=== PATIENT | male | born 1985 | race American Indian/Alaskan Native ===

== ENCOUNTER 2018-06-15 15:19 | Emergency (ER) | payer MEDICAID, OTHER ==
[2018-06-15 15:25] VITALS: BMI 40.3
[2018-06-15 15:28] VITALS: TEMP 98.7
--- NOTE | 2018-06-15 15:48 | ED PDOC ---
Arrival/HPI - General Chief Complaint: Abdominal Pain - History of Present Illness Narrative History of Present Illness (Text): 06/15/18 15:50 32 y o male PMhx HTN, asthma presents to the ED c/o lower abd pain x 2 days. States he was drinking [place] and [place] liquor while out with friends 2 nights prior, states that he started feeling abdominal discomfort 2-3 hrs after EtOH ingestion. Admits to being social drinker on weekends and special occasions. States he ate a small amt of food prior to drinking that evening. Denies hx of this occurring before. Came to ED today because the pain was not going away and he was concerned. Denies associated nausea or vomiting. Localizes abdominal pain to below umbilicus without radiation, describes as sharp/achy in quality, rates pain as 7/10 currently. Denies taking any pain medications at home for symptoms. Denies hx sick contacts, recent URI, or recent antibiotic use. States no one at home has similar symptoms. Denies fever, chills, headache, dizziness, chest pain, sob, n/v/d/c, urinary complaints, low back pain, or other symptoms currently. States his blood pressure is usually uncontrolled, and admits to missing doses of his am HTN pill sometimes. States he took his bp pill this am. PMhx: asthma, HTN PSurgHx: denies Allergies: NKDA Home meds: HTN med daily (pt does not recall name or dosage) Fam hx: denies Soc hx: drinks EtOH socially; smokes 2-3 cigars/daily; denies illicit drug use PMD: Dr. Gotti Time/Duration: Other (2 days) Symptom Onset: Gradual Symptom Course: Unchanged Quality: Aching, Stabbing Severity Level: 7 Activities at Onset: Other (Drinking alcohol) Context: Home Past Medical History - Provider Review Nursing Documentation Reviewed: Yes - Travel History Have you recently traveled outside [place] w/in the past 3 mons?: No - Infectious Disease Hx of Infectious Diseases: None - Cardiac Hx Cardiac Disorders: No Hx Hypotension: Yes - Pulmonary Hx Asthma: Yes - Neurological Hx Neurological Disorder: No - HEENT Hx HEENT Disorder: No - Renal Hx Renal Disorder: No - Endocrine/Metabolic Hx Endocrine Disorders: No - Hematological/Oncological Hx Blood Disorders: No - Integumentary Hx Dermatological Disorder: No - Musculoskeletal/Rheumatological Hx Back Pain: Yes - Gastrointestinal Hx Gastrointestinal Disorders: No - Genitourinary/Gynecological Hx Genitourinary Disorders: No - Psychiatric Hx Psychophysiologic Disorder: No Hx Depression: No Hx Substance Use: Yes - Surgical History Other/Comment: right wrist, left hand - Anesthesia Hx Anesthesia: No Hx Anesthesia Reactions: No Hx Malignant Hyperthermia: No Family/Social History Family/Social History: No Known Family HX Smoking Status: Light Smoker < 10 Cigarettes Daily Hx Alcohol Use: Yes (shots) Hx Substance Use: Yes Substance used: PCP daily Allergies/Home Meds Allergies/Adverse Reactions: Allergies seasonal Allergy (Mild, Uncoded 05/09/15 10:57) Review of Systems - Physician Review All systems were reviewed & negative as marked: Yes - Review of Systems Constitutional: absent: Fatigue, Weight Change, Fevers, Night Sweats Eyes: absent: Vision Changes Respiratory: absent: SOB, Cough, Sputum, Wheezing Cardiovascular: absent: Chest Pain, Palpitations, Edema, OLSEN Gastrointestinal: Abdominal Pain. absent: Stool Changes, Constipation, Diarrhea, Nausea, Vomiting, Appetite Changes, Hematochezia, Food Intolerance Genitourinary Male: absent: Dysuria, Frequency, Hematuria Musculoskeletal: absent: Arthralgias, Back Pain, Myalgias Skin: absent: Rash, Pruritis Neurological: absent: Headache, Dizziness, Focal Weakness, Gait Changes Endocrine: absent: Diaphoresis Hemo/Lymphatic: absent: Adenopathy Physical Exam Vital Signs Temp Pulse Resp BP Pulse Ox 06/15/18 15:19 98.7 F 91 H 18 151/89 H 97 Temperature: Afebrile Blood Pressure: Hypertensive Pulse: Regular Respiratory Rate: Normal Appearance: Positive for: Well-Appearing, Non-Toxic, Comfortable Pain Distress: Moderate Mental Status: Positive for: Alert and Oriented X 3 - Systems Exam Head: Present: Atraumatic, Normocephalic Pupils: Present: PERRL Extroacular Muscles: Present: EOMI Conjunctiva: Present: Normal Mouth: Present: Moist Mucous Membranes Neck: Present: Normal Range of Motion. No: JVD, Lymphadenopathy Respiratory/Chest: Present: Clear to Auscultation, Good Air Exchange. No: Respiratory Distress, Accessory Muscle Use, Wheezes, Rales, Rhonchi Cardiovascular: Present: Regular Rate and Rhythm, Normal S1, S2. No: Murmurs, Rub, Gallop Abdomen: Present: Tenderness (To palpation in lower abdomen inferior to umbilicus), Distention, Normal Bowel Sounds. No: Peritoneal Signs, Rebound, Guarding, Hernias, Mass/Organomegaly Upper Extremity: Present: Normal Inspection, Normal ROM, NORMAL PULSES, Neurovascularly Intact, Capillary Refill < 2s. No: Cyanosis, Edema, Temperature Abnormalties Lower Extremity: Present: Normal Inspection, NORMAL PULSES, Normal ROM, Neurovascularly Intact, Capillary Refill < 2 s. No: Edema, Temperature Abnormalties Neurological: Present: GCS=15, CN II-XII Intact, Speech Normal, Motor Func Grossly Intact, Normal Sensory Function, Normal Cerebellar Funct Skin: Present: Warm, Dry, Normal Color. No: Rashes Psychiatric: Present: Alert, Oriented x 3, Normal Insight, Normal Concentration Medical Decision Making ED Course and Treatment: 06/15/18 16:01 32 y o male PMhx asthma, HTN presenting with lower abd pain x 2 days. Plan: -Labs -Toradol -Abd/pelvis CT Will continue to monitor 06/15/18 18:12 Pt reassessed, states he is feeling better. Results of CT scan demonstrate no acute findings. AST elevated at 82, instructed patient to have LFTs repeated in clinic, likely 2/2 to EtOH intake. Instructed pt to follow-up with his PMD in 2-3 days after ER discharge. Can have LFTs repeated as outpatient. Pt to be discharged to home at this time. All questions and concerns addressed with pt and he is agreeable to plan. - RAD Interpretation Radiology Orders: 06/15/18 15:43 ABD & PELVIS IV CONTRAST ONLY [CT] Stat - Medication Orders Current Medication Orders: Ketorolac Tromethamine (Toradol) 15 mg IVP STAT STA Stop: 06/15/18 15:44 Disposition/Present on Arrival - Present on Arrival Any Indicators Present on Arrival: No History of DVT/PE: No History of Uncontrolled Diabetes: No Urinary Catheter: No History of Decub. Ulcer: No History Surgical Site Infection Following: None - Disposition Have Diagnosis and Disposition been Completed?: Yes Diagnosis: Abdominal pain, Transaminitis Disposition: HOME/ ROUTINE Disposition Time: 18:16 Patient Problems: Current Active Problems Problem Status Onset Abdominal pain Acute Transaminitis Acute Condition: IMPROVED Discharge Instructions (ExitCare): Acute Abdomen (Belly Pain), Adult (DC) Print Language: NIUEAN Additional Instructions: Please follow-up with your primary care physician within 2-3 days of hospital discharge. Can resume normal diet as tolerated. Should your symptoms recur or worsen, please call your primary care physician or report to your nearest emergency department. Please have your liver function tests repeated within 2 weeks during follow-up with your primary care physician. Referrals: Lolita Gotti MD [Primary Care Provider] - Follow up with primary Forms: [facility] (Chinese)
[2018-06-15 16:03] LABS: URINE BILIRUBIN NEGATIVE (NEGATIVE); URINE BLOOD NEGATIVE (NEGATIVE); URINE GLUCOSE (UA) NEGATIVE (NEGATIVE); URINE LEUKOCYTE ESTERASE NEGATIVE Leu/uL (NEGATIVE); URINE PROTEIN TRACE mg/dL (<30 mg/dL)
[2018-06-15 16:04] LABS: URINE APPEARANCE CLEAR (CLEAR); URINE COLOR LIGHT YELLOW (YELLOW)
[2018-06-15 16:07] LABS: URINE RBC NEGATIVE /hpf (0-2); URINE WBC NEGATIVE /hpf (0-6)
[2018-06-15 16:10] LABS: BASO # 0.02 K/mm3 (0.0-2.0); BASO % 0.4 % (0.0-3.0); EOS # 0.2 (0.0-0.7); EOS % 4.1 % (1.5-5.0); GRAN # 3.64 (1.4-6.5); GRAN % 67.2 % (50.0-68.0); HEMOGLOBIN 15.7 g/dL (14.0-18.0); LYMPH # 1.3 (1.2-3.4); LYMPH % 23.3 % (22.0-35.0); MEAN CELL VOLUME 89.8 fl (80.0-105.0); MEAN CORPUSCULAR HEMOGLOBIN 30.8 pg (25.0-35.0); MEAN CORPUSCULAR HGB CONC 34.4 g/dl (31.0-37.0); MEAN PLATELET VOLUME 10.2 fl (7.0-11.0); MONO # 0.3 (0.1-0.6); RBC 5.09 10^6/uL (3.5-6.1); RED CELL DISTRIBUTION WIDTH 12.4 % (11.5-14.5); WHITE BLOOD COUNT 5.4 10^3/uL (4.5-11.0)
[2018-06-15 16:20] LABS: ALB/GLOB RATIO 1.3 (1.1-1.8); ALBUMIN 4.5 g/dL (3.0-4.8); BLOOD UREA NITROGEN 10 mg/dL (7-21); CALCIUM 9.3 mg/dL (8.4-10.5); GFR NON-AFRICAN AMERICAN > 60
[2018-06-15 16:28] LABS: ALT/SGPT 42 U/L (7-56); AST/SGOT 82 U/L (17-59)
--- NOTE | 2018-06-15 17:33 | CT ---
Date of service: 06/15/2018 PROCEDURE: CT Abdomen and Pelvis with contrast HISTORY: lower abdominal pain COMPARISON: None. TECHNIQUE: Contrast dose: 144 cc of Omni 350 Radiation dose: Total exam DLP = 1243.91 mGy-cm. This CT exam was performed using one or more of the following dose reduction techniques: Automated exposure control, adjustment of the mA and/or kV according to patient size, and/or use of iterative reconstruction technique. FINDINGS: LOWER THORAX: Unremarkable. LIVER: Unremarkable. No gross lesion or ductal dilatation. GALLBLADDER AND BILE DUCTS: Unremarkable. PANCREAS: Unremarkable. No gross lesion or ductal dilatation. SPLEEN: Unremarkable. ADRENALS: Unremarkable. No mass. KIDNEYS AND URETERS: Unremarkable. No hydronephrosis. No solid mass. VASCULATURE: Unremarkable. No aortic aneurysm. No aortic atherosclerotic calcification or mural plaque present. BOWEL: Unremarkable. No obstruction. No gross mural thickening. APPENDIX: Normal appendix. PERITONEUM: Unremarkable. No free fluid. No free air. LYMPH NODES: Unremarkable. No enlarged lymph nodes. BLADDER: Unremarkable. REPRODUCTIVE: Unremarkable. BONES: No acute fracture. OTHER FINDINGS: None. IMPRESSION: No acute findings
[2018-06-15 17:45] VITALS: BP 141/81; PULSE 83; RESP 19; O2SAT 98
== END 2018-06-15 18:21 | disposition home or self-care (01) ==
LOC: ED 15:19
DX: R10.9 Unspecified abdominal pain (principal); R74.0 Nonspecific elevation of levels of transaminase and lactic acid dehydrogenase [LDH]; I10 Essential (primary) hypertension; F17.210 Nicotine dependence, cigarettes, uncomplicated
CPT/HCPCS: 74177; 80053; 81001; 83735; 85025; 96374; 99284; J1885; Q9967

== ENCOUNTER 2018-10-02 10:28 | Emergency (ER) | payer MEDICAID, OTHER ==
[2018-10-02 10:29] VITALS: BMI 40.3
[2018-10-02 11:07] VITALS: RESP 18; TEMP 98.8
--- NOTE | 2018-10-02 11:38 | ED PDOC ---
Arrival/HPI - General Chief Complaint: Palpitations Historian: Patient - History of Present Illness Narrative History of Present Illness (Text): 10/02/18 11:36 33 y/o male, pmh including htn, nkda, c/o nasal congestion/throat pain/cough x 2 days and out of his BP medication that he has been taking for years. Pt. stated that he has nasal congestion, associated with throat pain and cough/fatigue x 2 days. Pt. stated that she has been out of his BP medication these two days, been taking diovan hct for years 80/12.5 po qd, unable to see pmd due to the insurance problem so he needs his medication refill, no night sweat, no rash, no dizziness, no change in vision, no other medical or psychological complaints. Past Medical History - Provider Review Nursing Documentation Reviewed: Yes - Infectious Disease Hx of Infectious Diseases: None - Cardiac Hx Cardiac Disorders: Yes Hx Hypertension: Yes Hx Hypotension: No - Pulmonary Hx Asthma: Yes - Neurological Hx Neurological Disorder: No - HEENT Hx HEENT Disorder: No - Renal Hx Renal Disorder: No - Endocrine/Metabolic Hx Endocrine Disorders: No - Hematological/Oncological Hx Blood Disorders: No - Integumentary Hx Dermatological Disorder: No - Musculoskeletal/Rheumatological Hx Back Pain: Yes - Gastrointestinal Hx Gastrointestinal Disorders: No - Genitourinary/Gynecological Hx Genitourinary Disorders: No - Psychiatric Hx Psychophysiologic Disorder: No Hx Depression: No Hx Substance Use: Yes - Surgical History Other/Comment: right wrist, left hand - Anesthesia Hx Anesthesia: No Hx Anesthesia Reactions: No Hx Malignant Hyperthermia: No Family/Social History - Physician Review Nursing Documentation Reviewed: Yes Family/Social History: Unknown Family HX Smoking Status: Light Smoker < 10 Cigarettes Daily Hx Alcohol Use: Yes (shots) Hx Substance Use: Yes Substance used: PCP daily Allergies/Home Meds Allergies/Adverse Reactions: Allergies seasonal Allergy (Mild, Uncoded 10/02/18 11:07) ITCHING Home Medications: Home Meds Medication Instructions Recorded Confirmed Valsartan/Hydrochlorothiazide 1 tab PO DAILY 10/02/18 10/02/18 [Valsartan and Hydrochlorothiazide 12.5 mg-80 ] Review of Systems - Review of Systems Constitutional: absent: Fatigue, Fevers Eyes: absent: Vision Changes ENT: Sore Throat, Rhinorrhea, Sinus Congestion. absent: Hearing Changes Respiratory: Cough, Sputum. absent: SOB, Wheezing Cardiovascular: absent: Chest Pain Gastrointestinal: absent: Abdominal Pain, Diarrhea, Nausea, Vomiting Musculoskeletal: absent: Arthralgias, Back Pain Skin: absent: Rash, Pruritis Neurological: absent: Headache, Dizziness Psychiatric: absent: Anxiety, Depression, Suicidal Ideation Physical Exam Vital Signs Reviewed: Yes Vital Signs Temp Pulse Resp BP Pulse Ox 10/02/18 11:02 98.8 F 94 H 18 153/90 H 96 Temperature: Afebrile Blood Pressure: Hypertensive Pulse: Regular Respiratory Rate: Normal Appearance: Positive for: Well-Appearing, Non-Toxic, Comfortable Pain Distress: Mild Mental Status: Positive for: Alert and Oriented X 3 - Systems Exam Head: Present: Atraumatic, Normocephalic, Other (+ttp on the rt. frontal sinus region with no periorbital or facial swelling. ) Pupils: Present: PERRL Extroacular Muscles: Present: EOMI Conjunctiva: Present: Normal Ears: Present: NORMAL TM, Normal Canal. No: Erythema Mouth: Present: Moist Mucous Membranes Pharnyx: No: ERYTHEMA, EXUDATE, TONSILS ENLARGED, Uvular Deviation, Muffled/Hoarse Voice, Strider, Soft Palate/Uvular Edema Nose (External): Present: Atraumatic. No: Abrasion, Contusion, Laceration Nose (Internal): Present: Normal Inspection, No Active Bleeding, Rhinorrhea. No: Septal Deviation, Septal Hematoma, Epistaxis Neck: Present: Normal Range of Motion Respiratory/Chest: Present: Clear to Auscultation, Good Air Exchange. No: Respiratory Distress, Accessory Muscle Use, Wheezes, Decreased Breath Sounds, Rales, Retracting, Rhonchi, Tachypneic, Tender to Palpation Cardiovascular: Present: Regular Rate and Rhythm, Normal S1, S2. No: Murmurs Abdomen: No: Tenderness, Distention, Peritoneal Signs Back: Present: Normal Inspection. No: CVA Tenderness, Midline Tenderness, Paraspinal Tenderness, Pain with Leg Raise, Decubitus Ulcer Upper Extremity: Present: Normal Inspection. No: Cyanosis, Edema Lower Extremity: Present: Normal Inspection. No: Edema Neurological: Present: GCS=15, CN II-XII Intact, Speech Normal, Motor Func Grossly Intact, Normal Cerebellar Funct, Gait Normal, Memory Normal Skin: Present: Warm, Dry, Normal Color. No: Rashes Psychiatric: Present: Alert, Oriented x 3, Normal Insight, Normal Concentration Medical Decision Making ED Course and Treatment: 10/02/18 11:39 -Will check his potassium level. 10/02/18 12:37 -Labs are nonsignificant, normal bun/creatine and normal potassium level. -Pt. stated that he has been taking diovan hct for over years, no adverse reaction or side effect, -Discharge home with augmentin/tamiflu, bromfed dm, medication refill for diovan hct, motrin, bed rest, stay hydrated, follow up with your own pmd and ENT within 2 days, return to the ER for any new or worsening signs or symptoms. - RAD Interpretation Event Marketing Intern: Radiologist - PA / INSURANCE ADMINISTRATOR / Resident Statement /DO has reviewed & agrees with the documentation as recorded. Disposition/Present on Arrival - Present on Arrival Any Indicators Present on Arrival: No History of DVT/PE: No History of Uncontrolled Diabetes: No Urinary Catheter: No History of Decub. Ulcer: No History Surgical Site Infection Following: None - Disposition Have Diagnosis and Disposition been Completed?: Yes Diagnosis: Flu-like symptoms, Sinusitis, HTN (hypertension), Medication refill Disposition: HOME/ ROUTINE Disposition Time: 11:42 Patient Plan: Discharge Patient Problems: Current Active Problems Problem Status Onset Flu-like symptoms Acute HTN (hypertension) Acute Medication refill Acute Sinusitis Acute Condition: GOOD Discharge Instructions (ExitCare): Sinusitis in Adults Additional Instructions: -Discharge home with augmentin/tamiflu, bromfed dm, medication refill for diovan hct, motrin, bed rest, stay hydrated, follow up with your own pmd and ENT within 2 days, return to the ER for any new or worsening signs or symptoms. Prescriptions: Amoxicillin/Clavulanate [Augmentin 875 MG-125 MG] 1 tab PO BID #14 tab Brompheniramine/Pseudoephed/Dm [Bromfed Dm Cough 118 ml] 10 ml PO QID PRN #300 ml PRN Reason: Other Ibuprofen [Motrin] 600 mg PO QID PRN #30 tab PRN Reason: Other Oseltamivir Cap [Tamiflu] 75 mg PO BID #10 cap Valsartan/Hydrochlorothiazide [Valsartan and Hydrochlorothiazide 12.5 mg-80 ] 1 tab PO DAILY #7 tab Referrals: FAMILY PROVIDER,NO [Non-Staff] - Follow up with Bautista Greene, DO [Staff Provider] - Follow up with primary Reagan Gotti MD [Primary Care Provider] - Follow up with primary Forms: [employer] (Nepali), WORK NOTE
[2018-10-02 12:10] LABS: BLOOD UREA NITROGEN 14 mg/dL (7-21); CALCIUM 9.1 mg/dL (8.4-10.5); GFR NON-AFRICAN AMERICAN > 60
[2018-10-02 13:13] VITALS: BP 140/90; PULSE 88; O2SAT 98
== END 2018-10-02 12:45 | disposition home or self-care (01) ==
LOC: ED 10:28
DX: J11.1 Influenza due to unidentified influenza virus with other respiratory manifestations (principal); J32.9 Chronic sinusitis, unspecified; I10 Essential (primary) hypertension; Z76.0 Encounter for issue of repeat prescription; F17.210 Nicotine dependence, cigarettes, uncomplicated